=== PATIENT | male | born 1995 ===

== ENCOUNTER 2017-02-24 11:20 | Emergency (ER) | payer MEDICAID ==
[2017-02-24 11:26] VITALS: BP 118/76; PULSE 85; RESP 18; TEMP 97.4; O2SAT 98
--- NOTE | 2017-02-24 11:51 | C.PDOC ---
History Of Present Illness 22 year old patient presents to the ED complaining of right eye redness, itching and swelling since earlier today. Patient states he woke up without any symptoms. He was cooking and suddenly his eyes felt itchy. Patient notes he was sneezing a lot at that time. He also notes swelling, redness, and discharge. Patient denies any foreign body sensation, pain, vision change, eating anything prior to symptoms, shortness of breath, difficulty swallowing, or rash. Time Seen by Provider: 02/24/17 11:33 Chief Complaint (Nursing): Eye Problem History Per: Patient History/Exam Limitations: no limitations Onset/Duration Of Symptoms: Hrs (earlier today) Current Symptoms Are (Timing): Still Present Injury To Eye?: No Severity: Mild Pain Scale Rating Of: 0 Associated Symptoms: Swelling, Itching, Discharge From Eye Recent travel outside of the [place]: No Past Medical History Reviewed: Historical Data, Nursing Documentation, Vital Signs Vital Signs: Last Vital Signs Temp 97.4 F L 02/24/17 11:23 Pulse 85 02/24/17 11:23 Resp 18 02/24/17 11:23 BP 118/76 02/24/17 11:23 Pulse Ox 98 02/24/17 12:42 Family History: States: Unknown Family Hx - Social History Hx Alcohol Use: No Hx Substance Use: Yes - Immunization History Hx Tetanus Toxoid Vaccination: Yes Hx Influenza Vaccination: Yes Hx Pneumococcal Vaccination: No Review Of Systems Except As Marked, All Systems Reviewed And Found Negative. Eyes: Positive for: Redness (swelling, discharge). Negative for: Pain, Vision Change ENT: Negative for: Throat Swelling Respiratory: Negative for: Shortness of Breath Skin: Negative for: Rash Physical Exam - Physical Exam Appears: Non-toxic, No Acute Distress Skin: Warm, Dry Head: Atraumatic, Normacephalic Eye(s): bilateral: PERRL, EOMI, right: Other (conjunctival injection and edema, white discharge, upper and lower eye lid swelling) Ear(s): Bilateral: Normal Nose: Normal Oral Mucosa: Moist Lips: No Swelling Throat: Normal, No Erythema, No Exudate Neck: Normal ROM, Supple Chest: Symmetrical Cardiovascular: Rhythm Regular Respiratory: Normal Breath Sounds, No Rales, No Rhonchi, No Wheezing Neurological/Psych: Oriented x3, Normal Speech, Normal Cognition ED Course And Treatment O2 Sat by Pulse Oximetry: 98 (room air) Pulse Ox Interpretation: Normal Progress Note: Plan: -Benadryl. -Reassess and disposition. Discussed with the patient regarding symptoms and signs of concern for allergic reaction vs infection. No difficulty breathing or swallowing. Patient's lungs are CTA. Patient is discharged and instructed to follow up with PMD/opthamologist in 1-2 days. Disposition - Disposition Referrals: Aristides Vicente MD [Staff Provider] - Disposition: HOME/ ROUTINE Disposition Time: 11:51 Condition: GOOD Additional Instructions: Avoid potential allergens. Follow up with your primary medical doctor or clinic in 2-5 days for further evaluation. Take medications as prescribed. Return to the emergency department at any time if symptoms persist or worsen. Prescriptions: DiphenhydrAMINE [Benadryl] 25 mg PO Q6 #20 cap Polymyxin B Sulf/Trimethoprim [Polymyxin B/Trimethoprim Sulfate 11757 U/ml-1] 1 / OP Q4 7 Days Instructions: General Allergic Reaction (ED) - Clinical Impression Clinical Impression: Swelling of eyelid, Conjunctivitis - PA / SPEECH LANGUAGE PATHOLOGY ASSISTANT / Resident Statement MD/DO has reviewed & agrees with the documentation as recorded. - Scribe Statement The provider has reviewed the documentation as recorded by the Scribe Johanne Gould All medical record entries made by the Scribe were at my direction and personally dictated by me. I have reviewed the chart and agree that the record accurately reflects my personal performance of the history, physical exam, medical decision making, and the department course for this patient. I have also personally directed, reviewed, and agree with the discharge instructions and disposition.
== END 2017-02-24 12:11 | disposition home or self-care (01) ==
LOC: C.ER 11:20
DX: H10.9 Unspecified conjunctivitis (principal); H02.89 Other specified disorders of eyelid